=== PATIENT | female | born 1960 | race Caucasian/White ===

== ENCOUNTER 2019-02-28 14:30 | Emergency (ER) | payer OTHER, SELFPAY ==
[2019-02-28 14:41] VITALS: BP 123/79; PULSE 84; RESP 16; TEMP 36.9; O2SAT 100
--- NOTE | 2019-02-28 15:34 | DI.RAD.S_ITS ---
PROCEDURE: XR ABDOMEN 1V INDICATIONS: Intermittent abd pain, Assess stool burden TECHNIQUE: One view of the abdomen acquired. COMPARISON: None. FINDINGS: Surgical changes and devices: None. Bowel: Bowel gas pattern demonstrates a moderate to large amount of colonic stool within the ascending colon and proximal transverse colon. Findings are suggestive of constipation. Small bowel gas pattern appears within normal limits. No definite obstruction. Soft tissues: No suspicious abdominal calcifications. Bones: No suspicious bony lesions. IMPRESSION: 1. Moderate to large amount of colonic stool in the ascending and proximal transverse colon suggestive of constipation. No definite obstruction. Dictated by: Scott Morocho M.D. on 02/28/2019 at 15:14 Approved by: Scott Morocho M.D. on 02/28/2019 at 15:15
[2019-02-28 15:49] LABS: Add Manual Diff / Slide Review NO; Basophils Absolute Auto 100 /uL (0-100); Basophils Percent Auto 0.8 % (0-2); Eosinophils Absolute Auto 600 /uL (0-450); Eosinophils Percent Auto 4.8 % (2-4); Hematocrit 44.5 % (36-46); Lymphocytes Absolute Auto 1800 /uL (1100-4500); Lymphocytes Percent Auto 13.7 % (25-40); Mean Corpuscular HGB Conc 33.8 % (30-36); Mean Corpuscular Hemoglobin 28.4 PG (26-34); Mean Corpuscular Volume 84.1 fL (80-100); Monocytes Absolute Auto 800 /uL (0-900); Monocytes Percent Auto 6.5 % (3-14); Neutrophils Absolute Auto 9700 /uL (1500-7000); Neutrophils Percent Auto 74.2 % (50-75); Platelet Count 358 X10^3/uL (150-400); Red Blood Cell Count 5.29 X10^6/uL (4.0-5.2); Red Cell Distribution Width 13.7 % (11.6-14.8)
[2019-02-28 15:56] LABS: Prothrombin Time 11.1 SECONDS (10.1-12.7)
[2019-02-28 15:59] LABS: PTT Partial Thromboplastin Tim 31 SECONDS (26.4-36.2)
[2019-02-28 16:01] VITALS: BP 123/72; PULSE 72; RESP 23
[2019-02-28 16:04] LABS: Alanine Aminotransferase 19 IU/L (<35); Albumin 4.4 g/dL (3.5-5.0); Albumin Globulin Ratio 1.4 (1.0-2.8); Alkaline Phosphatase 84 U/L (38-126); Aspartate Aminotransferase 33 IU/L (14-36); BUN Creatinine Ratio 26.7 (6-22); Bilirubin Total 0.6 mg/dL (0.2-1.3); Blood Urea Nitrogen 16 mg/dL (7-17); Calcium 9.9 mg/dL (8.4-10.2); Carbon Dioxide 27 mmol/L (22-32); Chloride 99 mmol/L (98-107); Estimated Glomerular Filt Rate > 60.0 mL/min (>60); Globulin 3.2 g/dL (1.7-4.1); Glucose 116 mg/dL (70-100); HEMOLYSIS 26 (0-50); Lipase 62 U/L (23-300); Potassium 3.4 mmol/L (3.4-5.1); Sodium 137 mmol/L (137-145); Total Protein 7.6 g/dL (6.3-8.2)
[2019-02-28 16:15] LABS: Troponin I < 0.012 ng/mL (0.01-0.034)
--- NOTE | 2019-02-28 16:24 | ED.ABDPAIN ---
HPI - Abdominal Pain General Chief Complaint: Abdominal Pain Stated Complaint: not feeling well Time Seen by Provider: 02/28/19 15:21 Source: patient and family Mode of arrival: Ambulatory History of Present Illness HPI narrative: This is a 58-year-old female with apparent lymphocytic colitis, who presents with abdominal pain. Patient has had diarrhea for several months, she has had a workup including colonoscopy and biopsies which showed lymph [place] colitis, she started steroids for this. She has had testing including negative C diff testing. She presents today because over the last 24 hours she has had increasing pain on her right abdomen which radiates up from her lower quadrant to her right upper quadrant and then up towards the epigastrium. At this time she does not have any pain and when she is at rest in bed she feels fine, but earlier in the day the pain is more crampy and severe. No blood in her stool, no vomiting. She denies any history of abdominal surgeries Related Data Home Medications Medication Instructions Recorded Confirmed budesonide 3 mg PO DAILY 02/28/19 02/28/19 cyclosporine [Restasis] 02/28/19 triamterene-hydrochlorothiazid 1 cap PO DAILY 02/28/19 02/28/19 Allergies Allergy/AdvReac Type Severity Reaction Status Date / Time metronidazole [From Flagyl] Allergy Severe Anaphylaxis Verified 02/28/19 14:44 Review of Systems Constitutional Constitutional: Denies fever(s) Cardiovascular Cardiovascular: Denies palpitations and Denies dyspnea Respiratory Respiratory: Denies dyspnea Gastrointestinal Gastrointestinal: Reports abdominal pain Genitourinary Genitourinary: Denies dysuria Endocrine Endocrine: Denies palpitations Patient History Social History Smoking Status: Never smoker Smoking Status: Never smoker alcohol intake frequency: holidays/special occasions only Substance Use Type: does not use Exam Narrative Exam Narrative: General: Non-toxic, well-appearing Head: Atraumatic Neck: Normal range of motion Cardiac: RRR on my exam Respiratory: Normal work of breathing, clear to auscultation bilaterally Abd: Soft, non-tender to palpation in all 4 quadrants, no guarding Neuro: Alert and oriented x 3 Initial Vital Signs Initial Vital Signs: Vital Signs Temperature 98.5 F 02/28/19 14:41 Pulse Rate 84 02/28/19 14:41 Respiratory Rate 16 02/28/19 14:41 Blood Pressure 123/79 02/28/19 14:41 Pulse Oximetry 100 02/28/19 14:41 Course Orders Ordered: ED Orders 02/28/19 15:30 Complete Blood Count AUTO DIFF Stat Comprehensive Metabolic Panel Stat Lipase Stat Partial Thromboplastin Time Stat Prothrombin Time INR Stat Troponin I Stat 02/28/19 15:33 EKG-12 Lead Stat 02/28/19 15:34 XR abdomen 1V Stat Vital Signs Vital signs: Vital Signs - 8 hr 02/28/19 14:41 02/28/19 16:01 02/28/19 17:00 Temperature 98.5 F Pulse Rate 84 72 79 Respiratory Rate 16 23 18 Blood Pressure 123/79 Blood Pressure [Right Arm] 123/72 122/75 Pulse Oximetry 100 97 02/28/19 17:26 Temperature Pulse Rate 77 Respiratory Rate 17 Blood Pressure Blood Pressure [Right Arm] 122/75 Pulse Oximetry 99 MDM - Abdominal Pain Differential Diagnosis Differential diagnosis: Likely abdominal pain, acute appendicitis, calculus of kidney, constipation, diverticulitis, gastroenteritis, pancreatitis and small bowel obstruction Lab Data Attestation: I reviewed the patient's lab results. Result diagrams: 02/28/19 15:30 02/28/19 15:30 Labs: Lab Results 02/28/19 02/28/19 02/28/19 Range/Units 15:30 15:30 15:30 WBC 13.0 H (4.5-11.0) X10^3/uL RBC 5.29 H (4.0-5.2) X10^6/uL Hgb 15.0 (12.0-16.0) g/dL Hct 44.5 (36-46) % MCV 84.1 (80-100) fL MCH 28.4 (26-34) PG MCHC 33.8 (30-36) % RDW 13.7 (11.6-14.8) % Plt Count 358 (150-400) X10^3/uL Neut % (Auto) 74.2 (50-75) % Lymph % (Auto) 13.7 L (25-40) % [place] % (Auto) 6.5 (3-14) % Eos % (Auto) 4.8 H (2-4) % Baso % (Auto) 0.8 (0-2) % Neut # (Auto) 9700 H (2435-5779) /uL Lymph # (Auto) 1800 (5121-9846) /uL [place] # (Auto) 800 (0-900) /uL Eos # (Auto) 600 H (0-450) /uL Baso # (Auto) 100 (0-100) /uL PT 11.1 (10.1-12.7) SECONDS INR 1.0 (0.9-1.3) APTT 31 (26.4-36.2) SECONDS Sodium 137 (137-145) mmol/L Potassium 3.4 (3.4-5.1) mmol/L Chloride 99 (98-107) mmol/L Carbon Dioxide 27 (22-32) mmol/L BUN 16 (7-17) mg/dL Creatinine 0.60 (0.52-1.04) mg/dL Estimated GFR > 60.0 (>60) mL/min BUN/Creatinine Ratio 26.7 H (6-22) Glucose 116 H (70-100) mg/dL Calcium 9.9 (8.4-10.2) mg/dL Total Bilirubin 0.6 (0.2-1.3) mg/dL AST 33 (14-36) IU/L ALT 19 (<35) IU/L Alkaline Phosphatase 84 (38-126) U/L Troponin I (0.01-0.034) ng/mL Total Protein 7.6 (6.3-8.2) g/dL Albumin 4.4 (3.5-5.0) g/dL Globulin 3.2 (1.7-4.1) g/dL Albumin/Globulin Ratio 1.4 (1.0-2.8) Lipase 62 (23-300) U/L 02/28/19 Range/Units 15:30 WBC (4.5-11.0) X10^3/uL RBC (4.0-5.2) X10^6/uL Hgb (12.0-16.0) g/dL Hct (36-46) % MCV (80-100) fL MCH (26-34) PG MCHC (30-36) % RDW (11.6-14.8) % Plt Count (150-400) X10^3/uL Neut % (Auto) (50-75) % Lymph % (Auto) (25-40) % [place] % (Auto) (3-14) % Eos % (Auto) (2-4) % Baso % (Auto) (0-2) % Neut # (Auto) (4154-7516) /uL Lymph # (Auto) (6321-5265) /uL [place] # (Auto) (0-900) /uL Eos # (Auto) (0-450) /uL Baso # (Auto) (0-100) /uL PT (10.1-12.7) SECONDS INR (0.9-1.3) APTT (26.4-36.2) SECONDS Sodium (137-145) mmol/L Potassium (3.4-5.1) mmol/L Chloride (98-107) mmol/L Carbon Dioxide (22-32) mmol/L BUN (7-17) mg/dL Creatinine (0.52-1.04) mg/dL Estimated GFR (>60) mL/min BUN/Creatinine Ratio (6-22) Glucose (70-100) mg/dL Calcium (8.4-10.2) mg/dL Total Bilirubin (0.2-1.3) mg/dL AST (14-36) IU/L ALT (<35) IU/L Alkaline Phosphatase (38-126) U/L Troponin I < 0.012 (0.01-0.034) ng/mL Total Protein (6.3-8.2) g/dL Albumin (3.5-5.0) g/dL Globulin (1.7-4.1) g/dL Albumin/Globulin Ratio (1.0-2.8) Lipase (23-300) U/L Point of care testing: Urine Dip Bedside Urine Glucose Negative Bedside Urine Bilirubin - Negative Bedside Urine Ketone - Negative Urine Specific [place] 1.015 Bedside Urine Occult Blood - Negative Bedside Urine pH 7.0 Bedside Urine Protein - Negative Bedside Urine Urobilinogen - Negative Bedside Urine Nitrite - Negative Bedside Urine Leukocytes +/- 15 Esterase Imaging Data Abdominal x-ray: Radiologist's impression: IMPRESSION: 1. Moderate to large amount of colonic stool in the ascending and proximal transverse colon suggestive of constipation. No definite obstruction. Dictated by: Scott Morocho M.D. on 02/28/2019 at 15:14 Approved by: Scott Morocho M.D. on 02/28/2019 at 15:15 ECG Data Interpretation: Time 3:42 p.m., heart rate 82, rhythm sinus, there is no ST segment elevation or depression, no abnormal T-wave inversions. Intervals within normal limits MDM Narrative Medical decision making narrative: On my examination patient is well appearing, vital signs are unremarkable, and her abdomen is completely benign with no tenderness in all 4 quadrants with deep palpation. Labs are obtained she does have a mild leukocytosis but she is on steroids, the remainder of her labs are unremarkable. Her pain radiates somewhat towards the epigastrium so I did obtain an EKG and a troponin to rule out ACS although by history this seems unlikely, her EKG is unremarkable and her troponin is negative, making cardiac cause of her symptoms highly unlikely. On repeat examination she continues to have reassuring vital signs, and she feels well, she has no significant tenderness in any quadrant of her abdomen, no signs of acute abdominal pathology. I discussed the options of CT for further evaluation today, versus treatment for constipation which was seen on x-ray today and close follow-up. She would prefer to avoid the CT scan today and try treating her constipation 1st, as her dehydrogenation converter helper also thought that her pain was due to her constipation. She understands that given her pain was on the right side of her abdomen, appendicitis is possible, and if she is having any persistent right lower quadrant pain, nausea, or any other concerning symptoms she needs to return within 24 hours for recheck. Patient would like to treat her constipation with [id number] medications, I reviewed my recommendations on these and return precautions the patient 1 more time, and she was discharged home in good condition Discharge Plan Departure Patient Disposition: Home Clinical Impression: Abdominal pain Qualifiers: Abdominal location: unspecified location Qualified Code(s): R10.9 - Unspecified abdominal pain Constipation Qualifiers: Constipation type: unspecified constipation type Qualified Code(s): K59.00 - Constipation, unspecified Discharge Date/Time: 02/28/19 17:41 Activity Restrictions/Additional Instructions: You were seen today for abdominal discomfort. Your labs are overall reassuring, you have a slightly elevated white blood cell count, which can be due to inflammation or pain, or it could also be due to the steroids that you're taking. Your x-ray does show some constipation, which may be contributing to your discomfort. Please try MiraLax, magnesium citrate, or docusate senna for your constipation. If you are having continued abdominal pain in the right lower part of her abdomen, or any other concerning symptoms such as fever, vomiting, please return for a recheck in the next 24 hours to make sure that this is not appendicitis. Prescriptions: No Action budesonide 3 mg capsule,delayed,extend.release 3 mg PO DAILY RF: 0 triamterene-hydrochlorothiazid 37.5-25 mg capsule 1 cap PO DAILY RF: 0 Restasis 0.05 % dropperette RF: 0
[2019-02-28 17:00] VITALS: BP 122/75; PULSE 79; RESP 18; O2SAT 97
[2019-02-28 17:26] VITALS: BP 122/75; PULSE 77; RESP 17; O2SAT 99
== END 2019-02-28 17:41 | disposition home or self-care (01) ==
PROVIDERS: Emergency Provider Emergency Medicine
DX: R10.9 Unspecified abdominal pain (principal); K59.00 Constipation, unspecified
CPT/HCPCS: 74018; 80053; 81003; 83690; 84484; 85025; 85610; 85730; 93005; 99283; 99285